=== PATIENT | male | born 1975 | race African-American/Black ===

== ENCOUNTER 2020-08-10 20:44 | Emergency (ER) | payer OTHER ==
[~2020-08-10] VITALS: Ht 177.8 cm; Wt 77.0 kg
[2020-08-10 21:10] VITALS: BP 141/79
[2020-08-10] MEDS ORDERED: KEFLEX500 M1 PO (22:22)
== END 2020-08-10 22:30 | DRG 605 ==
LOC: ED 20:44
PROC: 0HQ1XZZ Repair Face Skin, External Approach (ICD-10-PCS; principal; 2020-08-10)
PROC: 0HQGXZZ Repair Left Hand Skin, External Approach (ICD-10-PCS; 2020-08-10)
DX: S01.01XA Laceration without foreign body of scalp, initial encounter (principal); S01.81XA Laceration without foreign body of other part of head, initial encounter; S11.91XA Laceration without foreign body of unspecified part of neck, initial encounter; S61.412A Laceration without foreign body of left hand, initial encounter; S16.1XXA Strain of muscle, fascia and tendon at neck level, initial encounter; X99.9XXA Assault by unspecified sharp object, initial encounter; Y92.149 Unspecified place in prison as the place of occurrence of the external cause